=== PATIENT | female | born 1965 | race Caucasian/White ===

== ENCOUNTER 2019-07-10 06:52 | Emergency (ER) | payer OTHER ==
[~2019-07-10] VITALS: Ht 160 cm; Wt 72.6 kg
[~2019-07-10 06:52] MED LIST: BUCALSEP SPRAY30 ML MM; CLONAZEPAM0.125 MG/T; COZAAR50 MG; FIORICET 50-301 EACH; KETO10TA2; KETO10TA2 PO; MEDROL4 MG PO; NAPROXEN500 M1 PO; OSEL75CA PO; PEPCID40 MG; PEPCID40 MG PO; PERCOCET 5/3251 TAB PO; PROTONIX40 M1; PROTONIX40 MG PO; REGLAN5 MG/5 ML PO; SORBUTUSS LIQU473 ML PO; TORADOL10 MG PO; ULTRACET; XANAX1 MG PO; ZANTAC300 MG PO; ZOFRAN4 MG PO
[2019-07-10] MEDS ORDERED: NORVASC2.5 M1 (07:24)
[2019-07-10] MEDS ORDERED: NEURONTIN300 MG (07:25)
== END 2019-07-10 10:00 | disposition home or self-care (01) ==
LOC: ER 06:52
DX: J06.9 Acute upper respiratory infection, unspecified (principal)

== ENCOUNTER 2020-01-03 13:31 | Outpatient (CLI) | payer OTHER ==
[~2020-01-03 13:31] MED LIST changes: +NEURONTIN300 MG; +NORVASC2.5 M1
== END 2020-01-03 13:35 | disposition home or self-care (01) ==
LOC: RAD 13:31
DX: J44.9 Chronic obstructive pulmonary disease, unspecified (principal)

== ENCOUNTER 2020-04-18 18:11 | Emergency (ER) | payer OTHER ==
[~2020-04-18] VITALS: Ht 160 cm; Wt 81.6 kg
[2020-04-18] MEDS ORDERED: ATACAND4 MG (18:19)
[2020-04-18] MEDS ORDERED: NEURONTIN300 MG (18:20)
== END 2020-04-19 00:50 | disposition home or self-care (01) ==
LOC: ER 18:11
DX: K66.0 Peritoneal adhesions (postprocedural) (postinfection) (principal); R10.84 Generalized abdominal pain

== ENCOUNTER 2021-05-31 07:33 | Outpatient (CLI) | payer OTHER ==
[~2021-05-31 07:33] MED LIST changes: +ATACAND4 MG
== END 2021-05-31 07:38 | disposition home or self-care (01) ==
LOC: MAMO-SONO 07:33
PROVIDERS: ATTEND Internal Medicine
DX: D24.1 Benign neoplasm of right breast (principal); D24.2 Benign neoplasm of left breast; Z12.31 Encounter for screening mammogram for malignant neoplasm of breast

== ENCOUNTER 2022-04-22 08:06 | Outpatient (CLI) | payer OTHER | END 2022-04-22 08:08 | disposition home or self-care (01) | LOC: RAD 08:06 | PROVIDERS: ATTEND Internal Medicine | DX: M79.642 Pain in left hand (principal); M79.602 Pain in left arm ==

== ENCOUNTER 2022-04-24 07:17 | Outpatient (CLI) | payer OTHER | END 2022-04-24 07:21 | disposition home or self-care (01) | LOC: MAMO-SONO 07:17 | PROVIDERS: ATTEND Internal Medicine | DX: N63.0 Unspecified lump in unspecified breast (principal); N63.11 Unspecified lump in the right breast, upper outer quadrant; N63.42 Unspecified lump in left breast, subareolar ==

== ENCOUNTER → 2022-04-24 08:27 | Outpatient (CLI) | payer OTHER | END | disposition home or self-care (01) | LOC: NUCLEAR 08:27 | PROVIDERS: ATTEND Internal Medicine | DX: M81.0 Age-related osteoporosis without current pathological fracture (principal); Z88.5 Allergy status to narcotic agent ==

== ENCOUNTER 2023-04-02 14:47 | Outpatient (CLI) | payer OTHER | END 2023-04-02 14:53 | disposition home or self-care (01) | LOC: RAD 14:47 | PROVIDERS: ATTEND Internal Medicine | DX: S80.911A Unspecified superficial injury of right knee, initial encounter (principal) ==

== ENCOUNTER 2023-11-13 12:06 | Outpatient (CLI) | payer OTHER | END 2023-11-13 12:11 | disposition home or self-care (01) | LOC: MAMO-SONO 12:06 | PROVIDERS: ATTEND Internal Medicine | DX: M06.1 Adult-onset Still's disease (principal); M25.561 Pain in right knee; M54.9 Dorsalgia, unspecified; N63.11 Unspecified lump in the right breast, upper outer quadrant; N63.42 Unspecified lump in left breast, subareolar ==

== ENCOUNTER 2024-09-27 13:10 | Outpatient (CLI) | payer OTHER | END 2024-09-27 13:11 | disposition home or self-care (01) | LOC: NUCLEAR 13:10 | DX: M81.0 Age-related osteoporosis without current pathological fracture (principal) ==